=== PATIENT | male | born 1970 | race Caucasian/White ===

== ENCOUNTER 2017-02-28 13:00 | Inpatient (IN) | payer BC ==
[~2017-02-28 13:00] MED LIST: DEXAMETHASONE SOD PHOS 4 MG/ML VIAL IV; GLYCOPYRROLATE 1 MG/5 ML SYRINGE IV PUSH; LACTATED RINGER'S 1000 ML INJ 2,000 ML IV; LIDOCAINE HCL 1% PF 5 ML SYRINGE OTHER; NEOSTIGMINE 5 MG/5 ML SYRINGE IV PUSH; NORMOSOL R INJ 1,000 ML IV; ONDANSETRON HCL 4 MG/2 ML VIAL IV; PHENYLEPH/NS 1000 MCG/10 ML SYR IV; PHENYLEPHRINE HCL 10 MG/ML VIAL IV; PROPOFOL 200 MG/20 ML AMP IV; ROCURONIUM INJ 50 MG/5 ML SYRINGE IV PUSH; SODIUM CHLOR 0.9% 250 ML INJ 250 ML IV; SUCCINYLCHOLINE CHLORIDE 100 MG/5 ML SYRINGE IV PUSH; ceFAZolin INJ 1,000 MG VIAL IV
[2017-02-28] MEDS: THROMBIN (TOPICAL) 5,000 UNIT VIAL (13:08)
[2017-02-28] MEDS: HEPARIN SODIUM - SQ 10,000 UNITS/ML VIAL ×2 (13:08→13:17)
[2017-02-28] MEDS: GELFOAM SIZE 100 (13:08)
[2017-02-28] MEDS: HEPARIN SODIUM - IV 10,000 UNITS/10 ML VIAL (13:17)
[2017-02-28] MEDS: PROTAMINE SULFATE 50 MG/5 ML VIAL (13:17)
[2017-02-28] MEDS: IOHEXOL 350 MG/ML 10 ML VIAL (for RAD DIAG) IVCONTRAST (13:18)
[2017-02-28] MEDS ORDERED: NALOXONE HCL 0.4 MG/ML AMP IV PUSH (13:30)
[2017-02-28] MEDS ORDERED: SODIUM CHLORIDE 0.9% FLUSH 10 ML FLUSH IV FLUSH (13:30)
[2017-02-28] MEDS ORDERED: ONDANSETRON HCL 4 MG/2 ML VIAL IV PUSH (13:30)
[2017-02-28] MEDS: Post-op Orders (for Pharmacy) XX (13:30)
[2017-02-28 13:32] LABS: I-STAT BLOOD UREA NITROGEN 19 MG/DL (5-21); I-STAT CHLORIDE 103 MMOL/L (102-111); I-STAT CREATININE 1.6 MG/DL (0.6-1.3); I-STAT GLUCOSE 218 MG/DL (68-110); I-STAT HEMOGLOBIN (CALC.) 12.6 G/DL (13.0-17.0); I-STAT POTASSIUM 5.1 MMOL/L (3.6-5.0); I-STAT SODIUM 136 MMOL/L (137-144)
[2017-02-28 13:35] LABS: AUTOMATED NEUTROPHIL # 22.7 TH/MM3 (1.8-7.7); BASOPHIL # 0.1 TH/MM3 (0-0.2); BASOPHIL % 0.4 % (0.0-2.0); HEMATOCRIT 39.4 % (39.0-51.0); HEMO FLAGS DIFF FINAL; LYMPH % 5.3 % (9.0-44.0); LYMPHOCYTE # 1.4 TH/MM3 (1.0-4.8); MEAN CELL VOLUME 93.3 FL (80.0-100.0); MEAN CORPUSCULAR HEMOGLOBIN 30.7 PG (27.0-34.0); MEAN CORPUSCULAR HGB CONC 32.9 % (32.0-36.0); MEAN PLATELET VOLUME 8.2 FL (7.0-11.0); MONO % 6.6 % (0.0-8.0); MONOCYTE # 1.7 TH/MM3 (0-0.9); NEUT % 87.7 % (16.0-70.0); PLATELET COUNT 412 TH/MM3 (150-450); RED BLOOD COUNT 4.22 MIL/MM3 (4.50-5.90); RED CELL DISTRIBUTION WIDTH 14.4 % (11.6-17.2); WHITE BLOOD COUNT 25.9 TH/MM3 (4.0-11.0)
[2017-02-28 13:44] LABS: APTT (PATIENT) 23.1 SEC (24.3-30.1)
[2017-02-28] MEDS: DIPHTH/TETANUS/ACEL PERTUSSIS (BOOSTER) 0.5 ML VIAL/PFS IM (14:36)
[2017-02-28] MEDS: ceFAZolin INJ 1,000 MG VIAL (14:36)
[2017-02-28] MEDS: *morphine SULFATE 4 MG/ML PERIprocedure ONLY (16:04)
[2017-02-28] MEDS ORDERED: DO NOT ADM ANY ANTICOAGULANT DRUGS (16:15)
[2017-02-28] MEDS: SODIUM CHLOR 0.9% 1000 ML INJ 1,000 ML IV (16:30)
[2017-02-28] MEDS: *morphine SULFATE 8 MG/ML PERIprocedure ONLY (16:32)
[2017-02-28] MEDS: HYDROmorphone HCL PF 2 MG/ML VIAL ×2 (17:04→17:19)
[2017-02-28] MEDS: MORPHINE SULFATE 4 MG/ML INJ IV PUSH ×2 (18:45→22:09)
[2017-02-28] MEDS: ZOLPIDEM TARTRATE 10 MG TAB PO (22:10)
[2017-02-28] MEDS: SODIUM CHLORIDE 0.9% FLUSH 10 ML FLUSH IV FLUSH (22:10)
[2017-03-01] MEDS: MORPHINE SULFATE 4 MG/ML INJ IV PUSH ×9 (00:18→17:57)
[2017-03-01] MEDS: SODIUM CHLOR 0.9% 1000 ML INJ 1,000 ML IV ×2 (02:08→07:11)
[2017-03-01] MEDS: SODIUM CHLORIDE 0.9% FLUSH 10 ML FLUSH IV FLUSH (06:58)
[2017-03-01 07:00] LABS: AUTOMATED NEUTROPHIL # 9.4 TH/MM3 (1.8-7.7); BASOPHIL % 0.2 % (0.0-2.0); HEMATOCRIT 25.3 % (39.0-51.0); HEMO FLAGS DIFF FINAL; HEMOGLOBIN 8.7 GM/DL (13.0-17.0); LYMPH % 15.3 % (9.0-44.0); LYMPHOCYTE # 1.8 TH/MM3 (1.0-4.8); MEAN CELL VOLUME 91.4 FL (80.0-100.0); MEAN CORPUSCULAR HEMOGLOBIN 31.4 PG (27.0-34.0); MEAN CORPUSCULAR HGB CONC 34.4 % (32.0-36.0); MEAN PLATELET VOLUME 8.4 FL (7.0-11.0); MONOCYTE # 0.7 TH/MM3 (0-0.9); NEUT % 78.5 % (16.0-70.0); PLATELET COUNT 254 TH/MM3 (150-450); RED BLOOD COUNT 2.77 MIL/MM3 (4.50-5.90); RED CELL DISTRIBUTION WIDTH 14.4 % (11.6-17.2)
[2017-03-01] MEDS ORDERED: LACTULOSE SYRUP 20 GM/30 ML CUP PO (07:00)
[2017-03-01] MEDS: POLYETHYLENE GLYCOL 17 GM PKG PO (07:09)
[2017-03-01] MEDS: DOCUSATE SODIUM 50 MG/SENNA 8.6 MG TAB PO (07:10)
[2017-03-01 07:16] LABS: ANION GAP 7 MEQ/L (5-15); BLOOD UREA NITROGEN 13 MG/DL (7-18); CALCIUM 7.9 MG/DL (8.5-10.1); CHLORIDE 105 MEQ/L (98-107); CREATININE 0.96 MG/DL (0.60-1.30); GLOMERULAR FILTRATION RATE 67 ML/MIN (>89); GLUCOSE,RANDOM 120 MG/DL (74-106); POTASSIUM 3.9 MEQ/L (3.5-5.1); SODIUM (NA) 138 MEQ/L (136-145)
[2017-03-01] MEDS ORDERED: PT OWN MED: VIIBRYD 40MG PO DAILY PO (09:00)
[2017-03-01] MEDS: GABAPENTIN 300 MG CAP PO ×2 (13:07→17:57)
[2017-03-01] MEDS: cloNIDine HCL 0.1 MG TAB PO (13:07)
[2017-03-01] MEDS: DULoxetine HCl DR 30 MG CAP PO (13:11)
== END 2017-03-01 18:07 | DRG 908 ==
LOC: NEPI 13:00 → NEDA 13:26 → N05A 18:27
PROC: 0W360ZZ Control Bleeding in Neck, Open Approach (ICD-10-PCS; principal; 2017-02-28 13:49)
PROC: 0JQ40ZZ Repair Right Neck Subcutaneous Tissue and Fascia, Open Approach (ICD-10-PCS; 2017-02-28 13:49)
PROC: 0JQH0ZZ Repair Left Lower Arm Subcutaneous Tissue and Fascia, Open Approach (ICD-10-PCS; 2017-02-28 13:49)
PROC: 05LY0ZZ Occlusion of Upper Vein, Open Approach (ICD-10-PCS; 2017-02-28 13:49)
DX: S15.8XXA Injury of other specified blood vessels at neck level, initial encounter (principal); F11.20 Opioid dependence, uncomplicated; M54.2 Cervicalgia; M54.9 Dorsalgia, unspecified; S41.111A Laceration without foreign body of right upper arm, initial encounter; S51.012A Laceration without foreign body of left elbow, initial encounter; X78.9XXA Intentional self-harm by unspecified sharp object, initial encounter; F43.21 Adjustment disorder with depressed mood; F43.10 Post-traumatic stress disorder, unspecified; Z96.653 Presence of artificial knee joint, bilateral
CPT/HCPCS: 71045; 71260; 80048; 85025; 85610; 85730; 86850; 86900; 86901; 90471; 90715; 94150; 97166-GO; 99285-25; 99291

== ENCOUNTER 2017-03-01 15:08 | Inpatient (IN) | payer BC ==
[~2017-03-01] VITALS: Ht 180.3 cm; Wt 103.3 kg
[~2017-03-01 15:08] MED LIST changes: -DEXAMETHASONE SOD PHOS 4 MG/ML VIAL IV; -GLYCOPYRROLATE 1 MG/5 ML SYRINGE IV PUSH; -LACTATED RINGER'S 1000 ML INJ 2,000 ML IV; -LIDOCAINE HCL 1% PF 5 ML SYRINGE OTHER; -NEOSTIGMINE 5 MG/5 ML SYRINGE IV PUSH; -NORMOSOL R INJ 1,000 ML IV; -ONDANSETRON HCL 4 MG/2 ML VIAL IV; -PHENYLEPH/NS 1000 MCG/10 ML SYR IV; -PHENYLEPHRINE HCL 10 MG/ML VIAL IV; -PROPOFOL 200 MG/20 ML AMP IV; -ROCURONIUM INJ 50 MG/5 ML SYRINGE IV PUSH; -SODIUM CHLOR 0.9% 250 ML INJ 250 ML IV; -SUCCINYLCHOLINE CHLORIDE 100 MG/5 ML SYRINGE IV PUSH; +VIIB40TA PO; +ZOLP12.5 PO; -ceFAZolin INJ 1,000 MG VIAL IV
[2017-03-01 18:45] VITALS: BP 173/91; PULSE 104; RESP 16; TEMP 98; O2SAT 98
[2017-03-01] MEDS ORDERED: MAGNESIUM HYDROXIDE SUSP 30 ML CUP PO PRN (20:00)
[2017-03-01] MEDS ORDERED: ALUMINUM/MAGNESIUM/SIMETH 30 ML CUP PO PRN (20:00)
[2017-03-01] MEDS ORDERED: traZODone HCL 100 MG TAB PO SCH (21:00)
[2017-03-01] MEDS: cloNIDine HCL 0.1 MG TAB PO SCH (23:22)
[2017-03-01] MEDS: hydrOXYzine HCL 50 MG TAB PO PRN (23:45)
[2017-03-01] MEDS ORDERED: ZOLPIDEM TARTRATE 10 MG TAB PO PRN (23:45)
[2017-03-02] MEDS: hydrOXYzine HCL 50 MG TAB PO PRN ×2 (05:45→20:46)
[2017-03-02] MEDS: cloNIDine HCL 0.1 MG TAB PO SCH (05:47)
[2017-03-02 06:04] LABS: BICARBONATE 27.2 MEQ/L (21.0-32.0); BLOOD UREA NITROGEN 12 MG/DL (7-18); CALCIUM 8.3 MG/DL (8.5-10.1); CHLORIDE 105 MEQ/L (98-107); CREATININE 0.82 MG/DL (0.60-1.30); GLOMERULAR FILTRATION RATE 101 ML/MIN (>89); GLUCOSE,RANDOM 93 MG/DL (74-106); SODIUM (NA) 138 MEQ/L (136-145)
[2017-03-02 06:05] LABS: CHOLESTEROL 153 MG/DL (120-200); TRIGLYCERIDES 177 MG/DL (42-150)
[2017-03-02 06:07] LABS: CHOLESTEROL/ HDL RATIO 4.34 RATIO; HDL CHOLESTEROL 35.2 MG/DL (40.0-60.0); LDL CHOLESTEROL 82 MG/DL (0-99)
[2017-03-02 06:08] VITALS: BP 104/59; PULSE 95; RESP 18; TEMP 98.6; O2SAT 96
[2017-03-02] MEDS: GABAPENTIN 300 MG CAP PO SCH ×3 (08:43→17:40)
[2017-03-02] MEDS: DULoxetine HCl DR 30 MG CAP PO SCH (08:43)
--- NOTE | 2017-03-02 11:52 | EKG ---
Date Performed: 03/02/2017 Time Performed: 09:26:02 PTAGE: 46 years EKG: Sinus rhythm NONSPECIFIC ST & T-WAVE ABNORMALITY ABNORMAL ECG NO PREVIOUS TRACING DOCTOR: Lesia Mendoza Interpretating Date/Time 03/02/2017 11:50:51
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
[2017-03-02] MEDS ORDERED: traZODone HCL 100 MG TAB PO PRN (12:30)
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
[2017-03-02] MEDS: HYDROmorphone HCL PF 2 MG/ML VIAL SQ PRN (17:03)
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
[2017-03-02 18:23] VITALS: BP 150/66; PULSE 104; RESP 18; TEMP 97.9; O2SAT 96
[2017-03-02] MEDS: ZOLPIDEM TARTRATE 10 MG TAB PO SCH (20:46)
[2017-03-03] MEDS: hydrOXYzine HCL 50 MG TAB PO PRN ×3 (06:06→20:30)
[2017-03-03 06:16] VITALS: BP 101/55; PULSE 88; RESP 20; TEMP 95.6; O2SAT 99
[2017-03-03 06:53] LABS: AUTOMATED NEUTROPHIL # 4.8 TH/MM3 (1.8-7.7); BASOPHIL % 0.5 % (0.0-2.0); EOSINOPHIL # 0.2 TH/MM3 (0-0.4); EOSINOPHIL % 2.4 % (0.0-4.0); HEMATOCRIT 26.6 % (39.0-51.0); LYMPH % 25.8 % (9.0-44.0); LYMPHOCYTE # 1.9 TH/MM3 (1.0-4.8); MEAN CELL VOLUME 90.7 FL (80.0-100.0); MEAN CORPUSCULAR HEMOGLOBIN 30.7 PG (27.0-34.0); MEAN CORPUSCULAR HGB CONC 33.8 % (32.0-36.0); MEAN PLATELET VOLUME 7.9 FL (7.0-11.0); MONO % 6.7 % (0.0-8.0); MONOCYTE # 0.5 TH/MM3 (0-0.9); NEUT % 64.6 % (16.0-70.0); PLATELET COUNT 287 TH/MM3 (150-450); RED BLOOD COUNT 2.93 MIL/MM3 (4.50-5.90); RED CELL DISTRIBUTION WIDTH 13.9 % (11.6-17.2); WHITE BLOOD COUNT 7.5 TH/MM3 (4.0-11.0)
[2017-03-03] MEDS: HYDROmorphone HCL PF 2 MG/ML VIAL SQ PRN ×3 (07:57→20:24)
[2017-03-03] MEDS: DULoxetine HCl DR 30 MG CAP PO SCH (07:57)
[2017-03-03] MEDS: GABAPENTIN 300 MG CAP PO SCH ×3 (07:57→17:57)
--- NOTE | 2017-03-03 09:52 | HHI.PR ---
Subjective Remarks Pt wants his pain meds, otherwise has no other complaints. No chest pain, SOB, nausea or vomiting. Objective Vitals Vital Signs Date Time Temp Pulse Resp B/P (MAP) Pulse Ox O2 Delivery O2 Flow Rate FiO2 03/03/17 06:16 95.6 88 20 101/55 (70) 99 03/02/17 18:23 97.9 104 18 150/66 (94) 96 I/O 03/02/17 03/02/17 03/02/17 03/03/17 03/03/17 03/03/17 07:00 15:00 23:00 07:00 15:00 23:00 Intake Total 220 ml 240 ml 1440 ml 240 ml Balance 220 ml 240 ml 1440 ml 240 ml Intake Oral 220 ml 240 ml 1440 ml 240 ml # Voids 1 1 # Bowel Movements 0 0 Result Diagram: 03/03/17 0615 03/02/17 0520 Objective Remarks GENERAL: male sitting up on bed ENT: Nose drainage. Airway patent. incision on the right of neck healing well w not signs of infection Multiple steri strips noted on chest, no signs of infection NECK: Trachea midline. CARDIOVASCULAR: Regular rate and rhythm without murmurs RESPIRATORY: Clear to auscultation. Breath sounds equal bilaterally. No wheezes GASTROINTESTINAL: Abdomen soft, non-tender, nondistended. No guarding. MUSCULOSKELETAL: Extremities without edema. NEUROLOGICAL: Awake and alert. Motor and sensory grossly within normal limits. Normal speech. A/P Assessment and Plan Impression: anemia- due to acute blood loss ; asymptomatic suicidal attempt Plan: wound care by nursing per trauma team dc instructions suture removal per vascular sx - written orders to call for orders and clarification pain control serial hct- and if symptomatic or significant drop, will transfuse dvt prophylaxis with ambulation Discharge Planning per primary team Kecia Rico MD Mar 03, 2017 09:52
--- NOTE | 2017-03-03 14:23 | HHI.PYPN ---
Subjective Remarks Patient seen for follow-up, chart reviewed. Discussion she staff reported the patient continues a complaint of pain and had a family visited yesterday which went well. Patient was found lying in hospital bed, cooperative stated that he continues to have pain but his mood is "fine" he reports having difficult to sleep still and anxiety earlier today prior to see his children as he does not see them since the suicide attempt. He states that he felt relieved after visiting with them and that he felt that he was more important to them and not just there to provide financial support. She reports having less depression today denies any suicidal ideations. Review of Systems Except as stated in HPI: all other systems reviewed are Neg Mental Status Examination Appearance: Appropriate Consciousness: Alert Orientation: x4 Motor Activity: Normal gait Speech: Unremarkable Language: Adequate Fund of Knowledge: Adequate Attention and Concentration: Adequate Memory: Unremarkable Mood: Appropriate Affect: Sad, Anxious Thought Process & Associations: Intact Thought Content: Appropriate Hallucination Type: None Delusion Type: None Suicidal Ideation: Yes (denies today) Suicidal Plan: No Suicidal Intention: No Homicidal Ideation: No Homicidal Plan: No Homicidal Intention: No Insight: Poor Judgment: Poor Results Labs Labs reviewed Test 03/03/17 06:15 White Blood Count 7.5 TH/MM3 Red Blood Count 2.93 MIL/MM3 Hemoglobin 9.0 GM/DL Hematocrit 26.6 % Mean Corpuscular Volume 90.7 FL Mean Corpuscular Hemoglobin 30.7 PG Mean Corpuscular Hemoglobin Concent 33.8 % Red Cell Distribution Width 13.9 % Platelet Count 287 TH/MM3 Mean Platelet Volume 7.9 FL Neutrophils (%) (Auto) 64.6 % Lymphocytes (%) (Auto) 25.8 % Monocytes (%) (Auto) 6.7 % Eosinophils (%) (Auto) 2.4 % Basophils (%) (Auto) 0.5 % Neutrophils # (Auto) 4.8 TH/MM3 Lymphocytes # (Auto) 1.9 TH/MM3 Monocytes # (Auto) 0.5 TH/MM3 Eosinophils # (Auto) 0.2 TH/MM3 Basophils # (Auto) 0.0 TH/MM3 CBC Comment DIFF FINAL Differential Comment Vitals/IOs Vital Signs Date Time Temp Pulse Resp B/P (MAP) Pulse Ox O2 Delivery O2 Flow Rate FiO2 03/03/17 06:16 95.6 88 20 101/55 (70) 99 Intake and Output 1/25/18 1/25/18 1/26/18 08:00 16:00 00:00 Intake Total 360 ml Balance 360 ml Assessment & Plan Problem List: (1) Adjustment disorder with depressed mood ICD Codes: F43.21 - Adjustment disorder with depressed mood Assessment & Plan The patient at this time noted to be less depressed, continues to have disturbed sleep. We'll increase trazodone 250 mg when necessary insomnia continuously medications. Continue regulations require medical team. Discharge planning in progress Justification for Cont. Inpt. At risk for further decompensation if at lower level of care Discharge Planning Back to his residence Carlos Bradford MD Mar 03, 2017 14:23
[2017-03-03 19:00] VITALS: BP 153/81; PULSE 103; RESP 19; TEMP 98.8; O2SAT 98
[2017-03-03] MEDS: traZODone HCL 50 MG TAB PO PRN ×2 (20:22→23:55)
[2017-03-03] MEDS: ZOLPIDEM TARTRATE 10 MG TAB PO SCH (21:00)
[2017-03-04] MEDS: HYDROmorphone HCL PF 2 MG/ML VIAL SQ PRN ×4 (02:06→23:50)
[2017-03-04] MEDS: hydrOXYzine HCL 50 MG TAB PO PRN ×2 (02:06→08:32)
[2017-03-04 06:12] VITALS: BP 98/56; PULSE 57; RESP 18; TEMP 97.5; O2SAT 94
[2017-03-04 06:13] LABS: HEMATOCRIT 27.9 % (39.0-51.0); HEMOGLOBIN 9.4 GM/DL (13.0-17.0)
--- NOTE | 2017-03-04 08:24 | HHI.PYPN ---
Subjective Remarks Patient seen for follow-up, chart review. Discussion she staff reported the patient had disturbed sleep estimating despite giving medications. Patient was found awake this morning noted to be calm and cooperative. Patient states that he had slept better last evening and that has been an improvement despite having slept 2 more hours in the previous night. Patient states he continues to have pain which wakes him up at night but denies feeling anxious and ruminating about his circumstances. Patient denies any suicide ideations. Patient reports feeling supported by his family at this time. Review of Systems Except as stated in HPI: all other systems reviewed are Neg Mental Status Examination Appearance: Appropriate Consciousness: Alert Orientation: x4 Motor Activity: Normal gait Speech: Unremarkable Language: Adequate Fund of Knowledge: Adequate Attention and Concentration: Adequate Memory: Unremarkable Mood: Appropriate Affect: Sad, Anxious Thought Process & Associations: Intact Thought Content: Appropriate Hallucination Type: None Delusion Type: None Suicidal Ideation: Yes (denies today) Suicidal Plan: No Suicidal Intention: No Homicidal Ideation: No Homicidal Plan: No Homicidal Intention: No Insight: Poor Judgment: Poor Results Labs Test 03/04/17 05:30 Hemoglobin 9.4 GM/DL Hematocrit 27.9 % Vitals/IOs Vital Signs Date Time Temp Pulse Resp B/P (MAP) Pulse Ox O2 Delivery O2 Flow Rate FiO2 03/04/17 06:12 97.5 57 18 98/56 (70) 94 Assessment & Plan Problem List: (1) Adjustment disorder with depressed mood ICD Codes: F43.21 - Adjustment disorder with depressed mood Assessment & Plan Patient this time continues report a improvement of mood, continues to have discharge date but has improved since yesterday. We'll increase duloxetine to 40 mg by mouth daily, we'll start BuSpar 5 mg by mouth 3 times a day for anxiety as patient has been requesting when necessary anxiety medications throughout the day yesterday as per chart. Continue recognitions per primary medical team. Continue to monitor mood and behavior. Discharge planning in progress Justification for Cont. Inpt. At risk for further decompensation if at lower level of care Discharge Planning Back to his residence Carlos Bradford MD Mar 04, 2017 08:24
[2017-03-04] MEDS: GABAPENTIN 300 MG CAP PO SCH ×3 (08:32→17:07)
--- NOTE | 2017-03-04 08:43 | HHI.PR ---
Subjective Remarks Patient in nad. No fever or chills. Eating well. No pain. Denies any cp, sob, n/ v/d/c. Objective Vitals Vital Signs Date Time Temp Pulse Resp B/P (MAP) Pulse Ox O2 Delivery O2 Flow Rate FiO2 03/04/17 06:12 97.5 57 18 98/56 (70) 94 03/03/17 19:23 18 03/03/17 19:00 98.8 103 19 153/81 (105) 98 I/O 03/03/17 03/03/17 03/03/17 03/04/17 03/04/17 03/04/17 06:59 14:59 22:59 06:59 14:59 22:59 Intake Total 240 ml 600 ml 480 ml Balance 240 ml 600 ml 480 ml Intake Oral 240 ml 600 ml 480 ml # Voids 1 2 2 # Bowel Movements 0 Result Diagram: 03/04/17 0530 03/02/17 0520 Objective Remarks GENERAL: male sitting up on bed SKIN: Laceration healing well on right side of neck. CARDIOVASCULAR: Regular rate and rhythm without murmurs RESPIRATORY: Clear to auscultation. Breath sounds equal bilaterally. No wheezes GASTROINTESTINAL: Abdomen soft, non-tender, nondistended. No guarding. MUSCULOSKELETAL: Extremities without edema. NEUROLOGICAL: Awake and alert. Motor and sensory grossly within normal limits. Normal speech. A/P Assessment and Plan Anemia- due to acute blood loss ; asymptomatic Suicidal attempt Plan: wound care by nursing per trauma team dc instructions suture removal per vascular sx - written orders to call for orders and clarification pain control, taper down as tolerated serial hct- and if symptomatic or significant drop, will transfuse. H/H so far stable. DC central line DVT prophylaxis with ambulation Discharge Planning Per primary team Discussed with the nurse, patient Milagro Bone MD Mar 04, 2017 08:43
[2017-03-04] MEDS: ACETAMINOPHEN 325 MG TAB PO PRN (09:14)
[2017-03-04] MEDS: busPIRone HCL 5 MG TAB PO SCH ×3 (09:51→21:30)
[2017-03-04] MEDS: DULoxetine HCl DR 20 MG CAP PO SCH (09:54)
[2017-03-04 18:40] VITALS: BP 153/80; PULSE 108; RESP 18; TEMP 98.5; O2SAT 96
[2017-03-04] MEDS: ZOLPIDEM TARTRATE 10 MG TAB PO SCH (21:00)
[2017-03-04] MEDS: traZODone HCL 50 MG TAB PO PRN (23:50)
[2017-03-05] MEDS: busPIRone HCL 5 MG TAB PO SCH ×3 (04:59→20:29)
[2017-03-05] MEDS: HYDROmorphone HCL PF 2 MG/ML VIAL SQ PRN ×3 (04:59→23:20)
[2017-03-05 05:58] VITALS: BP 92/52; PULSE 95; RESP 17; TEMP 98.1; O2SAT 96
[2017-03-05] MEDS: ACETAMINOPHEN 325 MG TAB PO PRN (06:46)
--- NOTE | 2017-03-05 08:03 | HHI.PR ---
Subjective Remarks Feels better today. Pain is better controlled. No nausea or vomiting no diarrhea or constipation. No chest pain or shortness of breath. Eating well. Objective Vitals Vital Signs Date Time Temp Pulse Resp B/P (MAP) Pulse Ox O2 Delivery O2 Flow Rate FiO2 03/05/17 05:58 98.1 95 17 92/52 (65) 96 03/04/17 18:40 98.5 108 18 153/80 (104) 96 I/O 03/04/17 03/04/17 03/04/17 03/05/17 03/05/17 03/05/17 06:59 14:59 22:59 06:59 14:59 22:59 Intake Total 1680 ml 1200 ml 480 ml Balance 1680 ml 1200 ml 480 ml Intake Oral 1680 ml 1200 ml 480 ml # Voids 2 4 1 Result Diagram: 03/04/17 0530 03/02/17 0520 Objective Remarks GENERAL: male sitting up on bed SKIN: Laceration healing well on right side of neck. CARDIOVASCULAR: Regular rate and rhythm without murmurs RESPIRATORY: Clear to auscultation. Breath sounds equal bilaterally. No wheezes GASTROINTESTINAL: Abdomen soft, non-tender, nondistended. No guarding. MUSCULOSKELETAL: Extremities without edema. NEUROLOGICAL: Awake and alert. Motor and sensory grossly within normal limits. Normal speech. A/P Assessment and Plan Anemia- due to acute blood loss ; asymptomatic Suicidal attempt Plan: wound care by nursing per trauma team dc instructions suture removal per vascular sx - written orders to call for orders and clarification pain control, taper pain meds down as tolerated serial hct- and if symptomatic or significant drop, will transfuse. H/H so far stable. DC central line DVT prophylaxis with ambulation Discharge Planning Per primary team Discussed with the nurse, patient Milagro Bone MD Mar 05, 2017 08:03
[2017-03-05] MEDS: DULoxetine HCl DR 20 MG CAP PO SCH (08:43)
[2017-03-05] MEDS: GABAPENTIN 300 MG CAP PO SCH ×3 (08:43→17:47)
--- NOTE | 2017-03-05 08:46 | HHI.PYPN ---
Subjective Remarks Patient seen in his room with nurse Carmel, chart review, patient compliant medication. Patient standing set his bed alert oriented calm and cooperative complains of some mild anxiety today, showing some insight into the process that led to his multiple lacerations. He also states he talked with his and children in the past day or 2 and is happy that he'll be going to counseling through his 's work. He denies suicidality homicidality voices or visions. Review of Systems Except as stated in HPI: all other systems reviewed are Neg Mental Status Examination Appearance: Appropriate Consciousness: Alert Orientation: x4 Motor Activity: Normal gait Speech: Unremarkable Language: Adequate Fund of Knowledge: Adequate Attention and Concentration: Adequate Memory: Unremarkable Mood: Appropriate Affect: Sad, Anxious Thought Process & Associations: Intact Thought Content: Appropriate Hallucination Type: None Delusion Type: None Suicidal Ideation: Yes (denies today) Suicidal Plan: No Suicidal Intention: No Homicidal Ideation: No Homicidal Plan: No Homicidal Intention: No Insight: Poor Judgment: Poor Results Vitals/IOs Vital Signs Date Time Temp Pulse Resp B/P (MAP) Pulse Ox O2 Delivery O2 Flow Rate FiO2 03/05/17 05:58 98.1 95 17 92/52 (65) 96 Intake and Output 03/05/17 03/05/17 03/06/17 08:00 16:00 00:00 Intake Total 480 ml Balance 480 ml Assessment & Plan Problem List: (1) Adjustment disorder with depressed mood ICD Codes: F43.21 - Adjustment disorder with depressed mood Assessment & Plan Estimated LOS: days patient depression continues though it appears to be softening, he denies suicidality of voices or visions at this time Justification for Cont. Inpt. At this time patient will decompensate placed on the lower level of care Discharge Planning Probable return home to follow-up outpatient medication management and therapy Horacio Gage MD Mar 05, 2017 08:46
[2017-03-05] MEDS: hydrOXYzine HCL 50 MG TAB PO PRN ×2 (08:51→17:49)
[2017-03-05 18:47] VITALS: BP 145/71; PULSE 101; RESP 18; TEMP 98; O2SAT 96
[2017-03-05] MEDS: ZOLPIDEM TARTRATE 10 MG TAB PO SCH (20:28)
[2017-03-05] MEDS: traZODone HCL 50 MG TAB PO PRN (23:20)
[2017-03-06] MEDS: busPIRone HCL 5 MG TAB PO SCH ×3 (05:51→20:51)
[2017-03-06] MEDS: ACETAMINOPHEN 325 MG TAB PO PRN (05:52)
[2017-03-06] MEDS: HYDROmorphone HCL PF 2 MG/ML VIAL SQ PRN ×3 (05:57→18:14)
[2017-03-06 06:23] VITALS: BP 119/57; PULSE 87; RESP 17; TEMP 98.1; O2SAT 96
--- NOTE | 2017-03-06 07:41 | HHI.PR ---
Subjective Remarks Patient in nad. says he is sob after he is walking. Pain in his neck is controlled by meds. No fever or chills. No n/v/d/c. Objective Vitals Vital Signs Date Time Temp Pulse Resp B/P (MAP) Pulse Ox O2 Delivery O2 Flow Rate FiO2 03/06/17 06:23 98.1 87 17 119/57 (77) 96 03/05/17 18:47 98.0 101 18 145/71 (95) 96 I/O 03/05/17 03/05/17 03/05/17 03/06/17 03/06/17 03/06/17 06:59 14:59 22:59 06:59 14:59 22:59 Intake Total 480 ml 600 ml 1680 ml 240 ml Balance 480 ml 600 ml 1680 ml 240 ml Intake Oral 480 ml 600 ml 1680 ml 240 ml # Voids 1 2 1 Result Diagram: 03/04/17 0530 03/02/17 0520 Objective Remarks GENERAL: male sitting up on bed SKIN: Laceration healing well on right side of neck. CARDIOVASCULAR: Regular rate and rhythm without murmurs RESPIRATORY: Clear to auscultation. Breath sounds equal bilaterally. No wheezes GASTROINTESTINAL: Abdomen soft, non-tender, nondistended. No guarding. MUSCULOSKELETAL: Extremities without edema. NEUROLOGICAL: Awake and alert. Motor and sensory grossly within normal limits. Normal speech. A/P Assessment and Plan Anemia- due to acute blood loss ; asymptomatic Suicidal attempt Plan: wound care by nursing per trauma team dc instructions suture removal per vascular sx - written orders to call for orders and clarification pain control, taper pain meds down as tolerated serial hct- and if symptomatic or significant drop, will transfuse. H/H so far stable. Start iron supplement DC central line DVT prophylaxis with ambulation Discharge Planning Per primary team Discussed with the nurse, patient Milagro Bone MD Mar 06, 2017 07:41
--- NOTE | 2017-03-06 08:11 | HHI.PYPN ---
Subjective Remarks Patient seen in his room floor staff, patient states she slept well last night is not up weight calm cooperative and pleasant with me, said he had a good visit with his and children last night. He denies suicidality or voices today for now continue treatment Review of Systems Except as stated in HPI: all other systems reviewed are Neg Mental Status Examination Appearance: Appropriate Consciousness: Alert Orientation: x4 Motor Activity: Normal gait Speech: Unremarkable Language: Adequate Fund of Knowledge: Adequate Attention and Concentration: Adequate Memory: Unremarkable Mood: Appropriate Affect: Sad, Anxious Thought Process & Associations: Intact Thought Content: Appropriate Hallucination Type: None Delusion Type: None Suicidal Ideation: Yes (denies today) Suicidal Plan: No Suicidal Intention: No Homicidal Ideation: No Homicidal Plan: No Homicidal Intention: No Insight: Poor Judgment: Poor Results Vitals/IOs Vital Signs Date Time Temp Pulse Resp B/P (MAP) Pulse Ox O2 Delivery O2 Flow Rate FiO2 03/06/17 06:23 98.1 87 17 119/57 (77) 96 Intake and Output 03/06/17 03/06/17 03/07/17 08:00 16:00 00:00 Intake Total 240 ml Balance 240 ml Assessment & Plan Problem List: (1) Adjustment disorder with depressed mood ICD Codes: F43.21 - Adjustment disorder with depressed mood Assessment & Plan Estimated LOS: days patient continues depressed though improving, denies suicidality and voices today, compliant medications. For now continue treatment Justification for Cont. Inpt. This time patient would decompensated placed on the lower level of care Discharge Planning To be determined Horacio Gage MD Mar 06, 2017 08:11
[2017-03-06] MEDS: DULoxetine HCl DR 20 MG CAP PO SCH (08:19)
[2017-03-06] MEDS: GABAPENTIN 300 MG CAP PO SCH ×3 (08:19→17:31)
[2017-03-06 08:46] LABS: AUTOMATED NEUTROPHIL # 6.9 TH/MM3 (1.8-7.7); BASOPHIL % 0.5 % (0.0-2.0); EOSINOPHIL # 0.4 TH/MM3 (0-0.4); EOSINOPHIL % 4.4 % (0.0-4.0); HEMATOCRIT 29.7 % (39.0-51.0); HEMOGLOBIN 9.9 GM/DL (13.0-17.0); LYMPH % 17.7 % (9.0-44.0); LYMPHOCYTE # 1.7 TH/MM3 (1.0-4.8); MEAN CELL VOLUME 90.3 FL (80.0-100.0); MEAN CORPUSCULAR HGB CONC 33.2 % (32.0-36.0); MEAN PLATELET VOLUME 7.5 FL (7.0-11.0); MONO % 4.8 % (0.0-8.0); MONOCYTE # 0.5 TH/MM3 (0-0.9); NEUT % 72.6 % (16.0-70.0); PLATELET COUNT 442 TH/MM3 (150-450); RED BLOOD COUNT 3.29 MIL/MM3 (4.50-5.90); RED CELL DISTRIBUTION WIDTH 14.3 % (11.6-17.2); WHITE BLOOD COUNT 9.6 TH/MM3 (4.0-11.0)
[2017-03-06] MEDS: hydrOXYzine HCL 50 MG TAB PO PRN (08:57)
[2017-03-06 09:01] LABS: BICARBONATE 26.6 MEQ/L (21.0-32.0); CREATININE 1.17 MG/DL (0.60-1.30)
[2017-03-06] MEDS: FERROUS SULFATE 325 MG (65 MG ELEMENTAL IRON) TAB PO SCH ×2 (12:18→17:31)
[2017-03-06 16:15] VITALS: BP 128/74; PULSE 96; RESP 17; TEMP 98.7; O2SAT 97
[2017-03-06] MEDS: ZOLPIDEM TARTRATE 10 MG TAB PO SCH (20:51)
[2017-03-06] MEDS: traZODone HCL 50 MG TAB PO PRN (23:40)
[2017-03-07] MEDS: ACETAMINOPHEN 325 MG TAB PO PRN ×2 (00:12→06:20)
[2017-03-07] MEDS: HYDROmorphone HCL PF 2 MG/ML VIAL SQ PRN ×3 (00:13→12:17)
[2017-03-07] MEDS: hydrOXYzine HCL 50 MG TAB PO PRN (03:39)
[2017-03-07 06:00] VITALS: BP 99/54; PULSE 81; RESP 16; TEMP 98.1; O2SAT 95
[2017-03-07] MEDS: busPIRone HCL 5 MG TAB PO SCH ×2 (06:19→12:15)
[2017-03-07 08:28] VITALS: BP 143/62; PULSE 107
[2017-03-07] MEDS: DULoxetine HCl DR 20 MG CAP PO SCH (08:28)
[2017-03-07] MEDS: GABAPENTIN 300 MG CAP PO SCH ×2 (08:28→12:14)
--- NOTE | 2017-03-07 10:39 | HHI.PR ---
Subjective Remarks 03-06 Patient in nad. says he is sob after he is walking. Pain in his neck is controlled by meds. No fever or chills. No n/v/d/c. 03-07 [facility]RY AND PATIENT AND RN NO NEW COMPLIANTS SUTURES PER SURGERY/WOUND CARE PER SURGERY POSSIBLE DC FROM PSYCHIATRY Objective Vitals Vital Signs Date Time Temp Pulse Resp B/P (MAP) Pulse Ox O2 Delivery O2 Flow Rate FiO2 03/07/17 08:28 107 143/62 (89) 03/07/17 06:00 98.1 81 16 99/54 (69) 95 03/06/17 16:15 98.7 96 17 128/74 (92) 97 I/O 03/06/17 03/06/17 03/06/17 03/07/17 03/07/17 03/07/17 07:00 15:00 23:00 07:00 15:00 23:00 Intake Total 240 ml 480 ml 1200 ml 240 ml 240 ml Balance 240 ml 480 ml 1200 ml 240 ml 240 ml Intake Oral 240 ml 480 ml 1200 ml 240 ml 240 ml # Voids 1 2 4 Result Diagram: 03/06/17 0830 03/06/17 0830 Other Results Laboratory Tests Test 03/06/17 08:30 White Blood Count 9.6 TH/MM3 Red Blood Count 3.29 MIL/MM3 Hemoglobin 9.9 GM/DL Hematocrit 29.7 % Mean Corpuscular Volume 90.3 FL Mean Corpuscular Hemoglobin 30.0 PG Mean Corpuscular Hemoglobin Concent 33.2 % Red Cell Distribution Width 14.3 % Platelet Count 442 TH/MM3 Mean Platelet Volume 7.5 FL Neutrophils (%) (Auto) 72.6 % Lymphocytes (%) (Auto) 17.7 % Monocytes (%) (Auto) 4.8 % Eosinophils (%) (Auto) 4.4 % Basophils (%) (Auto) 0.5 % Neutrophils # (Auto) 6.9 TH/MM3 Lymphocytes # (Auto) 1.7 TH/MM3 Monocytes # (Auto) 0.5 TH/MM3 Eosinophils # (Auto) 0.4 TH/MM3 Basophils # (Auto) 0.0 TH/MM3 CBC Comment DIFF FINAL Differential Comment Blood Urea Nitrogen 12 MG/DL Creatinine 1.17 MG/DL Random Glucose 139 MG/DL Calcium Level 9.0 MG/DL Sodium Level 137 MEQ/L Potassium Level 3.9 MEQ/L Chloride Level 102 MEQ/L Carbon Dioxide Level 26.6 MEQ/L Anion Gap 8 MEQ/L Estimat Glomerular Filtration Rate 67 ML/MIN Objective Remarks GENERAL: Awake alert oriented talkative and cooperative SKIN: Warm and dry. Wounds dressed on WRISTS STERI-STRIPS IN PLACE HEAD: Atraumatic. Normocephalic. EYES: Pupils equal and round. No scleral icterus. No injection or drainage. ENT: No nasal bleeding or discharge. Mucous membranes pink and moist. NECK: Trachea midline. No JVD. CARDIOVASCULAR: Regular rate and rhythm. S1,S 2 NO S3 OR S4 RESPIRATORY: No accessory muscle use. Clear to auscultation. Breath sounds equal bilaterally. GASTROINTESTINAL: Abdomen soft, non-tender, nondistended. Hepatic and splenic margins not palpable. OBESE MUSCULOSKELETAL: Extremities without clubbing, cyanosis, or edema. No obvious deformities. NEUROLOGICAL: Awake and alert. No obvious cranial nerve deficits. Motor grossly within normal limits. Five out of 5 muscle strength in the arms and legs. Normal speech. PSYCHIATRIC: INAppropriate mood and affect; insight and judgment ABnormal. Procedures SUTURE REPAIR OF LACERATIONS ON WRISTS Medications and IVs Current Medications Acetaminophen (Tylenol) 650 mg Q4H PRN PO Pain 1-5 or Temp >101F Last administered on 03/07/17at 06:20; Start 03/01/17 at 20:00 Magnesium Hydroxide (Milk Of Magnesia Liq) 30 ml DAILY PRN PO CONSTIPATION; Start 03/01/17 at 20:00 Al Hydrox/Mg Hydrox/Simethicone (Mag-Al Plus Susp Liq) 30 ml Q6H PRN PO DYSPEPSIA; Start 03/01/17 at 20:00 Hydroxyzine HCl (Atarax) 50 mg Q6H PRN PO ANXIETY Last administered on at 03:39; Start 03/01/17 at 20:00 Duloxetine HCl (Cymbalta Dr) 30 mg DAILY PO Last administered on 03/03/17at 07: 57; Start 03/02/17 at 09:00; Stop 03/04/17 at 08:20; Status DC Gabapentin (Neurontin) 300 mg TID PO Last administered on 03/07/17at 08:28; Start 03/02/17 at 09:00 Clonidine (Catapres) 0.1 mg Q8HR PO Last administered on 03/01/17at 23:22; Start 03/01/17 at 22:00; Stop 03/02/17 at 12:22; Status DC Trazodone HCl (Desyrel) 100 mg HS PO Last administered on 03/01/17at 23:21; Start 03/01/17 at 21:00; Stop 03/02/17 at 12:22; Status DC Oxycodone HCl (Roxicodone) 5 mg Q4H PRN PO pain > 5 Last administered on at 10:04; Start 03/01/17 at 21:30; Stop 03/02/17 at 12:28; Status DC Zolpidem Tartrate (Ambien) 10 mg HS PRN PO INSOMNIA Last administered on at 23:49; Start 03/01/17 at 23:45; Stop 03/02/17 at 12:22; Status DC Trazodone HCl (Desyrel) 100 mg HS PRN PO insomnia Last administered on at 03:25; Start 03/02/17 at 12:30; Stop 03/03/17 at 08:59; Status DC Zolpidem Tartrate (Ambien) 10 mg HS PO Last administered on 03/06/17at 20:51; Start 03/02/17 at 21:00 Oxycodone HCl (Roxicodone) 10 mg Q4H PRN PO pain > 5 Last administered on at 08:29; Start 03/02/17 at 13:30 Hydromorphone HCl (Dilaudid Pf Inj) 1 mg Q3H PRN SQ breakthrough pain Last administered on 03/04/17at 07:17; Start 03/02/17 at 12:30; Stop 03/04/17 at 11:03 ; Status DC Trazodone HCl (Desyrel) 150 mg HS PRN PO INSOMNIA Last administered on at 23:40; Start 03/03/17 at 09:15 Duloxetine HCl (Cymbalta Dr) 40 mg DAILY PO Last administered on 03/07/17at 08: 28; Start 03/04/17 at 09:00 Buspirone HCl (Buspar) 5 mg Q8HR PO Last administered on 03/07/17at 06:19; Start 03/04/17 at 09:00 Hydromorphone HCl (Dilaudid Pf Inj) 1 mg Q6H PRN SQ breakthrough pain Last administered on 03/07/17at 06:38; Start 03/04/17 at 11:15 Ferrous Sulfate (Ferrous Sulfate) 325 mg BID@12,17 PO Last administered on 03/06at 17:31; Start 03/06/17 at 12:00 A/P Assessment and Plan Assessment and Plan Anemia- due to acute blood loss ; asymptomatic Suicidal attempt Plan: wound care by nursing per trauma team dc instructions suture removal per vascular sx - written orders to call for orders and clarification pain control, taper pain meds down as tolerated serial hct- and if symptomatic or significant drop, will transfuse. H/H so far stable. Start iron supplement DVT prophylaxis with ambulation Discharge Planning DC PENDING PSYCHIATRIC CLEARANCE Yann Malloy DO Mar 07, 2017 10:39
[2017-03-07] MEDS ORDERED: FERR325T20 PO (11:34)
[2017-03-07] MEDS ORDERED: SENN8.6T88 PO (11:34)
[2017-03-07] MEDS ORDERED: OXYC-392 PO (11:34)
[2017-03-07] MEDS ORDERED: AMBI10TA PO (12:12)
[2017-03-07] MEDS ORDERED: TRAZ50TA12 PO (12:12)
[2017-03-07] MEDS ORDERED: DULO-39 PO (12:12)
[2017-03-07] MEDS ORDERED: BUSP5TAB PO (12:12)
[2017-03-07] MEDS ORDERED: NEUR300C PO (12:12)
[2017-03-07] MEDS: FERROUS SULFATE 325 MG (65 MG ELEMENTAL IRON) TAB PO SCH (12:15)
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
== END 2017-03-07 15:13 | disposition home or self-care (01) | DRG 881 ==
LOC: H4EA 18:19
PROVIDERS: ADMIT Student in an Organized Health Care Education/Training Program; ATTEND Student in an Organized Health Care Education/Training Program
DX: F43.21 Adjustment disorder with depressed mood (principal); D62 Acute posthemorrhagic anemia; F11.20 Opioid dependence, uncomplicated; F43.10 Post-traumatic stress disorder, unspecified; F41.9 Anxiety disorder, unspecified; G89.29 Other chronic pain; M48.02 Spinal stenosis, cervical region; Z96.653 Presence of artificial knee joint, bilateral; Z98.1 Arthrodesis status
CPT/HCPCS: 80048; 80061; 83036; 85014; 85018; 85025; 93005; J1170